=== PATIENT | female | born 1955 | race Caucasian/White ===

== ENCOUNTER 2018-10-26 20:03 | Inpatient (IN) | payer OTHER ==
[~2018-10-26] VITALS: Ht 170.2 cm; Wt 107.1 kg
[2018-10-26] MEDS ORDERED: SODIUM CHLORIDE 0.9% 1000ML 1,000 ML IV STA ×2 (20:31→23:06)
[2018-10-26] MEDS ORDERED: ONDANSETRON HCL INJ 2MG/ML 2ML 2 MG/ML VIAL IV STA (20:31)
[2018-10-26] MEDS ORDERED: PANTOPRAZOLE 40 MG 10ML VIAL IV STA (20:31)
[2018-10-26] MEDS ORDERED: MORPHINE SULFATE INJ 4 MG/ML INJ 1ML ONE (20:41)
[2018-10-26 20:42] LABS: BASOPHILS % 0.2 % (0.0-1.0); EOSINOPHILS # (AUTO) 0.1 (0.0-0.4); EOSINOPHILS % 0.4 % (0.0-6.0); HEMATOCRIT 43.5 % (34.2-44.1); HEMOGLOBIN 15.2 g/dL (12.0-16.0); LYMPHOCYTES # (AUTO) 1.1 (1.0-3.2); LYMPHOCYTES % 9.5 % (18.0-39.1); MEAN CORPUSCULAR HEMOGLOBIN 31.8 pg (28-32); MEAN CORPUSCULAR HGB CONC 34.9 g/dL (31-35); MONOCYTES # (AUTO) 0.4 (0.2-0.8); MONOCYTES % 3.9 % (4.4-11.3); NEUTROPHILS # (AUTO) 9.7 (2.1-6.9); NEUTROPHILS % 85.6 % (38.7-80.0); PLATELET COUNT 342 x10e3/uL (140-360); RED BLOOD COUNT 4.78 x10e6/uL (3.6-5.1); RED CELL DISTRIBUTION WIDTH 12.5 % (11.7-14.4)
[2018-10-26] MEDS ORDERED: MORPHINE SULFATE 5 MG/ML VIAL IV ONE (20:45)
[2018-10-26 20:54] LABS: INR 0.83; PROTHROMBIN TIME 12.2 seconds (11.9-14.5)
[2018-10-26 20:55] LABS: PARTIAL THROMBOPLASTIN TIME 30.5 seconds (23.8-35.5)
[2018-10-26] MEDS ORDERED: MORPHINE SULFATE INJ 4 MG/ML INJ 1ML IV ONE (21:00)
[2018-10-26] MEDS ORDERED: ONDANSETRON HCL INJ 2MG/ML 2ML 2 MG/ML VIAL IV ONE (21:00)
[2018-10-26] MEDS ORDERED: PANTOPRAZOLE 40 MG 10ML VIAL IV ONE (21:00)
[2018-10-26 21:01] LABS: ALANINE AMINOTRANSFERASE 34 IU/L (0-55); ALBUMIN 4.3 g/dL (3.5-5.0); ALBUMIN/GLOBULIN RATIO 1.1 (0.8-2.0); ALKALINE PHOSPHATASE 101 IU/L (40-150); AMYLASE 87 U/L (25-125); ANION GAP 13.4 mmol/L (8-16); BLOOD UREA NITROGEN 19 mg/dL (7-26); BUN/CREATININE RATIO 21 (6-25); CALCIUM 10.4 mg/dL (8.4-10.2); CARBON DIOXIDE 27 mmol/L (22-29); CHLORIDE 97 mmol/L (98-107); CREATINE KINASE 184 IU/L (29-168); CREATININE, SERUM 0.89 mg/dL (0.57-1.11); EST GLOMERULAR FILTRATION RATE > 60 ML/MIN (60-); GLUCOSE 129 mg/dL (74-118); LIPASE 66 U/L (8-78); MAGNESIUM 1.9 MG/DL (1.3-2.1); POTASSIUM 3.4 mmol/L (3.5-5.1); SODIUM 134 mmol/L (136-145)
--- NOTE | 2018-10-26 21:29 | Diagnostic Imaging Report ---
EXAM: CHEST SINGLE (PORTABLE), AP 1 view INDICATION: Upper abdominal pain COMPARISON: None FINDINGS: LINES/TUBES: None LUNGS: No consolidations or edema. PLEURA: No effusions or pneumothorax. HEART AND MEDIASTINUM: Normal size and contour. BONES AND SOFT TISSUES: No acute findings. IMPRESSION: No acute thoracic abnormality. Signed by: Dr. Gillian Liu M.D. on 10/26/2018 9:26 PM
--- NOTE | 2018-10-26 23:26 | Diagnostic Imaging Report ---
EXAM: CT ABDOMEN AND PELVIS without IV CONTRAST INDICATION: Epigastric pain COMPARISON: None TECHNIQUE: The abdomen and pelvis were scanned using a multidetector helical scanner. Coronal and sagittal reformations were obtained. Dose modulation, iterative reconstruction, and/or weight based adjustment of the mA/kV was utilized to reduce the radiation dose to as low as reasonably achievable. Routine protocol performed. IV Contrast: None Oral Contrast: Gastrografin CTDIvol has been reviewed. It is below the limits set by the Radiation Protocol Committee (RPC). FINDINGS: LOWER THORAX: No consolidations LIVER: No masses BILIARY: Cholecystectomy without ductal dilation. SPLEEN: No masses PANCREAS: No masses ADRENALS: No nodules RIGHT KIDNEY: No nephroureterolithiasis or hydronephrosis. LEFT KIDNEY: No nephroureterolithiasis or hydronephrosis. GI TRACT: Mildly distended loops of proximal small bowel up to 3.2 cm with air-fluid levels and without transition point identified. VESSELS: Normal PERITONEUM/RETROPERITONEUM: Trace free pelvic fluid. LYMPH NODES: No lymphadenopathy REPRODUCTIVE ORGANS: Normal BLADDER: Decompressed SOFT TISSUES: Small fat-containing umbilical hernia. BONES: No suspicious bone lesions. IMPRESSION: Partial small bowel obstruction, likely secondary to adhesions. Signed by: Dr. Gillian Liu M.D. on 10/26/2018 11:23 PM
[2018-10-26 23:28] LABS: BILIRUBIN,URINE NEGATIVE (NEGATIVE); CLARITY,URINE CLOUDY (CLEAR); COLOR,URINE YELLOW (YELLOW); KETONES,URINE TRACE (NEGATIVE); LEUKOCYTE ESTERASE ,URINE TRACE (NEGATIVE); NITRITE,URINE NEGATIVE (NEGATIVE); PROTEIN,URINE DIPSTICK NEGATIVE (NEGATIVE); URINE UROBILINOGEN 0.2 mg/dL (0.2 - 1)
[2018-10-26 23:35] LABS: RBC,URINE 0-5 /HPF (0-5); WBC,URINE (MAN) 0-5 /HPF (0-5)
[2018-10-26 23:36] LABS: AMORPHOUS SEDIMENT,URINE MANY (FEW); BACTERIA,URINE MANY /HPF; EPITHELIAL CELLS,URINE FEW /LPF
[2018-10-26] MEDS ORDERED: PROMETHAZINE 12.5MG/ NACL 0.9% 12.5 MG/50 ML BAG IV STA (23:50)
[2018-10-26] MEDS ORDERED: SYNTHROID150 MCG PO (23:52)
[2018-10-26] MEDS ORDERED: MONTELUKAST SOD10 MG PO (23:52)
[2018-10-27] VITALS (7 sets, daily range): BP systolic 121–150; BP diastolic 63–70
[2018-10-27] MEDS ORDERED: CEFEPIME 2 GM/NS 0.9% 100 ML 100 ML IV SCH (00:15)
[2018-10-27] MEDS ORDERED: BENZOCAINE/TETRACAINE/BUTAMBEN AERO SPRAY 56 GM CAN TOP ONE ×2 (00:15)
[2018-10-27] MEDS ORDERED: SODIUM CHLORIDE 0.9% 1000ML 1,000 ML IV SCH (00:21)
[2018-10-27] MEDS ORDERED: PROMETHAZINE 12.5MG/ NACL 0.9% 12.5 MG/50 ML BAG IV PRN (00:30)
--- OUTSIDE RECORDS SUMMARY | 2018-10-27 00:36 | XMS REPORT ---
Author [facility] Address Unknown Phone Unavailable Care Team Providers Care Abnormal Psychology Teacher Name Role Phone Nani POMPA Unavailable Unavailable Problems This patient has no known problems. Allergies, Adverse Reactions, Alerts This patient has no known allergies or adverse reactions. Medications This patient has no known medications. Results Test Description Test Time Test Comments Text Results Atomic Results Result Comments CT ABDOMEN/PELVIS WO 2018-10-26 23:18:00 [place] [address] Patient Name: UZMA MARAVILLA MR #: [id number] : 1955 Age/Sex: 63/F Req #: [id number] Adm Physician: Ordered by: KANDI POMPA MD Report #: [id number] Location: ER Room/Bed: Procedure: [id number] CT/CT ABDOMEN/PELVIS WO Exam Date: 10/26/18 Exam Time: 2307 REPORT STATUS: Signed EXAM: CT ABDOMEN AND PELVIS without IV CONTRAST KAYE CATION: Epigastric pain COMPARISON: None TECHNIQUE: The abdomen and pelvis were scanned using a multidetector helical scanner. Coronal and sagittal reformations were obtained. Dose modulation, iterative reconstruction, and/or weight based adjustment of the mA/kV was utilized to reduce the radiation dose to as low as reasonably achievable. Routine protocol performed. IV Contrast: None Oral Contrast: Gastrografin CTDIvol has been reviewed. It is below the limits set by the Radiation Protocol Committee (RPC). FINDINGS: LOWER THORAX: No consolidations LIVER: No masses BILIARY: Cholecystectomy without ductal dilation. SPLEEN: No masses PANCREAS: No masses ADRENALS: No nodules RIGHT KIDNEY: No nephroureterolithiasis or hydronephrosis. LEFT KIDNEY: No nephroureterolithiasis or hydronephrosis. GI TRACT: Mildly distended loops of proximal small bowel up to 3.2 cm with air-fluid levels and without transition point identified. VESSELS: Normal PERITONEUM/RETROPERITONEUM: Trace free pelvic fluid. LYMPH NODES: No lymphadenopathy REPRODUCTIVE ORGANS: Normal BLADDER: Decompressed SOFT TISSUES: Small fat-containing umbilical hernia. BONES: No suspicious bone lesions. IMPRESSION: Partial small bowel obstruction, likely secondary to adhesions. Signed by: Dr. Deanna Bess M.D. on 10/26/2018 11:23 PM Dictated By: DEANNA BESS MD 22 Transcribed By: ETHAN on 10/26/182322 COPY TO: KANDI POMPA MD CHEST SINGLE (PORTABLE) 2018-10-26 21:25:00 [place] [address] Patient Name: UZMA MARAVILLA MR #: [id number] : 1955 Age/Sex: 63/F Req #: [id number] Adm Physician: Ordered by: KANDI POMPA MD Report #: [id number] Location: ER Room/Bed: Procedure: [id number] DX/CHEST SINGLE (PORTABLE) Exam Date: 10/26/18 Exam Time: 2104 REPORT STATUS: Signed EXAM: CHEST SINGLE (PORTABLE), AP 1 view INDICATION: Upper abdominal pain COMPARISON: None FINDINGS: LINES/TUBES: None LUNGS: No consolidations or edema. PLEURA: No effusions or pneumothorax. HEART AND MEDIASTINUM: Normal size and contour. BONES AND SOFT TISSUES: No acute findings. IMPRESSION: No acute thoracic abnormality. Signed by: Dr. Deanna Bess M.D. on 10/26/2018 9:26 PM Dictated By: DEANNA BESS MD 25 Transcribed By: ETHAN on 10/26/182125 COPY TO: KANDI POMPA MD
[2018-10-27] MEDS ORDERED: CEFEPIME HCL 2 GM VIAL ONE ×2 (00:40→00:44)
[2018-10-27] MEDS ORDERED: SODIUM CHLORIDE 0.9% 100 ML ONE ×2 (00:41→00:44)
[2018-10-27] MEDS ORDERED: MORPHINE SULFATE INJ 4 MG/ML INJ 1ML ONE ×2 (00:48→05:05)
[2018-10-27] MEDS: MORPHINE SULFATE 2 MG/ML SYR 1ML IV PRN ×2 (00:52→05:10)
[2018-10-27] MEDS: METRONIDAZOLE 500MG/NS 100ML 100 ML IV SCH ×4 (01:12→18:30)
--- NOTE | 2018-10-27 02:44 | Diagnostic Imaging Report ---
EXAM: ABDOMEN-1VIEW (KUB), INDICATION: NG tube placement small bowel obstruction COMPARISON: CT of the abdomen and pelvis October 26, 2018 FINDINGS: See impression IMPRESSION: Partially visualized lower chest and upper abdomen for the purpose of nasogastric tube placement. The tip is in the expected location of the fundus of the stomach. Dilated loops of small bowel consistent with partial small bowel obstruction. Signed by: Dr. Gillian Liu M.D. on 10/27/2018 2:41 AM
[2018-10-27] MEDS: ONDANSETRON HCL INJ 2MG/ML 2ML 2 MG/ML VIAL IV PRN (04:05)
[2018-10-27] MEDS ORDERED: ACETAMINOPHEN 1000 MG/100 ML IV PRN (06:00)
[2018-10-27] MEDS ORDERED: HYDRALAZINE HCL 20 MG/ML VIAL IV PRN (06:00)
[2018-10-27] MEDS ORDERED: DEXTROSE 5%/0.9% SOD CHL 1,000 ML IV SCH (06:15)
[2018-10-27] MEDS: LEVOTHYROXINE SODIUM 100 MCG TAB PO SCH (07:30)
[2018-10-27] MEDS: MONTELUKAST SODIUM 10 MG TAB PO SCH (09:00)
[2018-10-27] MEDS: PANTOPRAZOLE 40 MG 10ML VIAL IV SCH ×2 (09:54→17:59)
[2018-10-27] MEDS: MORPHINE SULFATE INJ 4 MG/ML INJ 1ML IV PRN (09:54)
[2018-10-27] MEDS: CEFEPIME 2 GM/NS 0.9% 100 ML 100 ML IV SCH ×2 (09:54→16:00)
--- NOTE | 2018-10-27 09:54 | NUR ---
assessment complete no distress noted, updated on poc voiced understanding, co pain 01/17, ivf infusing ot l wrist 20g no ss of infiltration noted,ng to r nare, with brownish fluid noted, no other co voiced call light in reach will continue ot monitor
[2018-10-27] MEDS: D5NS/KCL 20MEQ 1,000 ML IV SCH ×2 (16:50→19:35)
[2018-10-27] MEDS ORDERED: SEVOFLURANE INHAL SOLN 250 ML PEN BTL ONE (16:51)
[2018-10-27] MEDS ORDERED: ONDANSETRON HCL INJ 2MG/ML 2ML 2 MG/ML VIAL ONE (16:51)
[2018-10-27] MEDS ORDERED: GLYCOPYRROLATE INJ 1MG/ 5 ML SYR ONE (16:51)
[2018-10-27] MEDS ORDERED: ROCURONIUM BROMIDE 10 MG/ML 5ML VIAL ONE (16:51)
[2018-10-27] MEDS ORDERED: NEOSTIGMINE 5 MG/5ML SYR ONE (16:51)
[2018-10-27] MEDS ORDERED: LIDOCAINE HCL 2% LOCAL INJ 5 ML SDV VIAL INJ ONE (16:51)
[2018-10-27] MEDS ORDERED: PROPOFOL IV EMULSION 10 MG/ML 20 ML VIAL ONE (16:51)
--- NOTE | 2018-10-27 17:10 | NUR ---
IV DC IN LT AC
--- NOTE | 2018-10-27 19:40 | NUR ---
Received report from AM nurse. Walking rounds completed.
--- NOTE | 2018-10-27 20:13 | NUR ---
Patient sitting up in bed. AAOx3. Denies pain at this time. NGT to suction. Green secretions noted. Patient NPO but given mouth moister with suction. IV to left wrist D5 20KCL at 75cc/hr. No noted redness, swelling or pain. Tele SR at 86. Family at bedside. NGT checked for placement. Good placement. Patient does have urgency to bring up fluids with flushing or checking placement. Continue monitor.
[2018-10-28] VITALS (7 sets, daily range): BP systolic 140–156; BP diastolic 68–80
--- NOTE | 2018-10-28 05:30 | NUR ---
Patient requested pain meds. Given nausea and pain meds as ordered by MD.
[2018-10-28] MEDS: METRONIDAZOLE 500MG/NS 100ML 100 ML IV SCH ×4 (05:50→17:56)
[2018-10-28] MEDS: LEVOTHYROXINE SODIUM 100 MCG TAB PO SCH ×2 (05:50→07:30)
[2018-10-28 05:51] LABS: BASOPHILS % 0.4 % (0.0-1.0); EOSINOPHILS # (AUTO) 0.1 (0.0-0.4); EOSINOPHILS % 2.1 % (0.0-6.0); HEMATOCRIT 38.1 % (34.2-44.1); HEMOGLOBIN 12.7 g/dL (12.0-16.0); LYMPHOCYTES # (AUTO) 1.5 (1.0-3.2); LYMPHOCYTES % 21.8 % (18.0-39.1); MEAN CORPUSCULAR HEMOGLOBIN 31.7 pg (28-32); MEAN CORPUSCULAR HGB CONC 33.3 g/dL (31-35); MONOCYTES # (AUTO) 0.9 (0.2-0.8); MONOCYTES % 13.8 % (4.4-11.3); NEUTROPHILS # (AUTO) 4.2 (2.1-6.9); NEUTROPHILS % 61.8 % (38.7-80.0); PLATELET COUNT 262 x10e3/uL (140-360); RED BLOOD COUNT 4.01 x10e6/uL (3.6-5.1); RED CELL DISTRIBUTION WIDTH 13.2 % (11.7-14.4)
[2018-10-28 06:15] LABS: ALANINE AMINOTRANSFERASE 21 IU/L (0-55); ALBUMIN 3.1 g/dL (3.5-5.0); ALKALINE PHOSPHATASE 61 IU/L (40-150); ANION GAP 11.5 mmol/L (8-16); BLOOD UREA NITROGEN 25 mg/dL (7-26); BUN/CREATININE RATIO 31 (6-25); CALCIUM 8.7 mg/dL (8.4-10.2); CARBON DIOXIDE 25 mmol/L (22-29); CHLORIDE 109 mmol/L (98-107); EST GLOMERULAR FILTRATION RATE > 60 ML/MIN (60-); GLUCOSE 100 mg/dL (74-118); POTASSIUM 3.5 mmol/L (3.5-5.1); SODIUM 142 mmol/L (136-145)
[2018-10-28] MEDS: MORPHINE SULFATE INJ 4 MG/ML INJ 1ML IV PRN (06:28)
[2018-10-28] MEDS: ONDANSETRON HCL INJ 2MG/ML 2ML 2 MG/ML VIAL IV PRN (06:29)
[2018-10-28 07:01] LABS: FREE T4 (FREE THYROXINE) 0.92 ng/dL (0.9-1.8); THYROID STIMULATING HORMONE 3.035 uIU/mL (0.350-4.940)
--- NOTE | 2018-10-28 07:18 | Diagnostic Imaging Report ---
RADIOGRAPH(S) OF THE ABDOMEN AND PELVIS, 2 view(s) HISTORY: Small bowel obstruction COMPARISON: Abdominal radiograph October 27, 2018. CT of the abdomen and pelvis October 26, 2018. FINDINGS: No air-filled dilated bowel. The fluid filled bowel on the comparison CT is not visible on radiographs. The bones are partially obscured by stool and overlying bowel gas. IMPRESSION: No significant interval change, the bowel findings are better characterized on the recent comparison CT of the abdomen and pelvis. Signed by: Dr. Fabrice Castellanos D.O., M.M.M. on 10/28/2018 7:14 AM
[2018-10-28] MEDS: MONTELUKAST SODIUM 10 MG TAB PO SCH (09:00)
--- NOTE | 2018-10-28 09:21 | Consultation ---
DATE OF CONSULTATION: October 28, 2018 REFERRING PHYSICIAN: Dr. Hughes. HISTORY OF PRESENT ILLNESS: Patient is a 63-year-old female who was admitted to the hospital with complaints of epigastric abdominal pain, started 2 days ago. She has associated nausea and vomiting. She is not passing any flatus for 2 days, not had a bowel movement. Evaluation with CT of the abdomen and pelvis and followup x-rays revealed findings suggestive of small bowel obstruction. The patient says her pain is less today, having crampy pain, but now this is gone, but she is still not passing any flatus. PAST MEDICAL HISTORY: Significant for previous surgeries including section, cholecystectomy, appendectomy as well as knee surgery and tonsillectomy. She has a history of hypothyroidism. ALLERGIES: SHE HAS ALLERGY TO PENICILLIN AND IODINE. MEDICATIONS: Listed in the chart. FAMILY HISTORY: Noncontributory. SOCIAL HISTORY: The patient does not smoke cigarettes or drink alcohol. REVIEW OF SYSTEMS: As stated above. She has not had any fever. PHYSICAL EXAMINATION GENERAL: The patient is awake and alert, in no distress. VITAL SIGNS: Normal. She is not tachycardic. HEENT: Sclerae not icteric. NECK: Supple. No masses. LUNGS: Equal breath sounds are clear bilaterally. CARDIAC: Regular rate and rhythm, with no murmur. ABDOMEN: Soft. There is no significant tenderness. No mass. There are no signs of peritonitis. EXTREMITIES: No edema. NEUROLOGIC: Grossly intact. LABORATORY DATA: White blood cell count was 11,000 on admission, repeat is 6.8. Hemoglobin and hematocrit are normal. Chemistries are essentially normal. ASSESSMENT: A 63-year-old female with symptoms suggestive of small bowel obstruction. RECOMMENDATIONS: Continue the patient n.p.o., on NG tube for now. Plan to repeat the abdominal x-ray tomorrow. Thank you for asking me to see Ms. Zavala. Job#: [id number] KI
[2018-10-28] MEDS: PANTOPRAZOLE 40 MG 10ML VIAL IV SCH ×2 (10:09→17:22)
--- NOTE | 2018-10-28 10:09 | NUR ---
ASSESSMENT COMPLETE NO DISTRESS NOTED, UPDATED ON POC VOICED UNDERSTANDING, DENIES PAIN AT THIS TIME, NG TO R NARE WITH GREEN FLUID NOTED, IVF INFUSING TO R HAND 20G NO SS OF INFILTRATION NOTED, NO OTHER CO VOICED CALL LIGHT IN REACH WILL CONTINUE TO MONITOR
[2018-10-28] MEDS: CEFEPIME 2 GM/NS 0.9% 100 ML 100 ML IV SCH ×3 (10:30→16:30)
[2018-10-28] MEDS: D5NS/KCL 20MEQ 1,000 ML IV SCH ×2 (11:00→22:15)
--- NOTE | 2018-10-28 11:30 | NUR ---
SPOKE WITH DR JAMIL REYES FOR PT TO HAVE LIFE SAVERS OR TIC TACS
--- NOTE | 2018-10-28 13:22 | NUR ---
SOCIAL WORK INITIAL ASSESSMENT Land Economist to bedside to discuss plan of care with patient/family. CM/SW role and care transitions discussed. Anticipated discharge plan discussed along with duration of care. CM/SW discussed patients right to make decisions in care. CM/SW work hours given. Patient lives: IN OWN HOUSE WITH SON Admit/Transfer: VIA ED FROM HOME POA/Emergency contact: ROSEMARY VASUQEZ [phone] Current/Previous Home Health: NONE PCP/Follow-up Care: PAM Current/Previous DME: NONE Other Services: NONE Employment Status: [employer] Areas of Concerns: NONE Referral Needs: NONE Education Needs: NONE IMM/[place] given and signed (if applicable): NA Goal for discharge: RETURN HOME INDEPENDENTLY CM/SW left business card at the bedside with contact information. Name and number was also written on the patients whiteboard. Patient verbalized understanding of discussion. CM will follow-up with ongoing discharge and transition of care needs.
--- NOTE | 2018-10-28 19:43 | NUR ---
Received change of shift report from Am nurse. Walking rounds completed.
[2018-10-29] VITALS (7 sets, daily range): BP systolic 144–181; BP diastolic 73–95
--- NOTE | 2018-10-29 | NUR ---
Patient up out of bed to bathroom several times. Ambulating with no difficulty noted. AAOx3. IV intact. NGT to WS draining greem secreations. Family at bedside. Continue monitor.
--- NOTE | 2018-10-29 05:22 | NUR ---
Patient resting quitly at this time. Continue monitor for changes in patient condition.
[2018-10-29] MEDS: METRONIDAZOLE 500MG/NS 100ML 100 ML IV SCH ×5 (06:00→23:38)
[2018-10-29 06:07] LABS: BASOPHILS % 0.3 % (0.0-1.0); EOSINOPHILS # (AUTO) 0.2 (0.0-0.4); EOSINOPHILS % 3.2 % (0.0-6.0); HEMATOCRIT 37.7 % (34.2-44.1); HEMOGLOBIN 12.4 g/dL (12.0-16.0); LYMPHOCYTES # (AUTO) 1.5 (1.0-3.2); MEAN CORPUSCULAR HEMOGLOBIN 31.6 pg (28-32); MEAN CORPUSCULAR HGB CONC 32.9 g/dL (31-35); MEAN CORPUSCULAR VOLUME 96.2 fL (81-99); MONOCYTES # (AUTO) 0.7 (0.2-0.8); MONOCYTES % 10.7 % (4.4-11.3); NEUTROPHILS # (AUTO) 4.1 (2.1-6.9); NEUTROPHILS % 62.5 % (38.7-80.0); PLATELET COUNT 250 x10e3/uL (140-360); RED BLOOD COUNT 3.92 x10e6/uL (3.6-5.1); RED CELL DISTRIBUTION WIDTH 13.1 % (11.7-14.4)
[2018-10-29 06:23] LABS: ANION GAP 10.7 mmol/L (8-16); BLOOD UREA NITROGEN 22 mg/dL (7-26); BUN/CREATININE RATIO 28 (6-25); CALCIUM 8.4 mg/dL (8.4-10.2); CARBON DIOXIDE 26 mmol/L (22-29); CHLORIDE 109 mmol/L (98-107); CREATININE, SERUM 0.79 mg/dL (0.57-1.11); EST GLOMERULAR FILTRATION RATE > 60 ML/MIN (60-); GLUCOSE 104 mg/dL (74-118); POTASSIUM 3.7 mmol/L (3.5-5.1); SODIUM 142 mmol/L (136-145)
[2018-10-29] MEDS: CEFEPIME 2 GM/NS 0.9% 100 ML 100 ML IV SCH ×4 (08:00→23:38)
--- NOTE | 2018-10-29 08:22 | Diagnostic Imaging Report ---
RADIOGRAPH(S) OF THE ABDOMEN AND PELVIS, 3 view(s) HISTORY: Small bowel obstruction COMPARISON: Abdominal radiographs October 28, 2018. FINDINGS: Status post placement of a nasogastric/orogastric tube, the tube is coiled within the stomach and the tip projects towards the fundus, the side port near the gastroesophageal junction. Dilated loops of small bowel within the left upper quadrant of the abdomen, up to 4.5 cm in diameter. Air and stool within the colon. Metallic clips in the right upper quadrant of the abdomen are compatible with prior cholecystectomy. The bones are partially obscured by stool and overlying bowel gas. IMPRESSION: 1. Findings remain compatible with a partial small bowel obstruction. 2. Status post placement of an NG/NG tube, as above. Signed by: Evens Mendez.Lang., M.M.M. on 10/29/2018 8:19 AM
--- NOTE | 2018-10-29 08:40 | NUR ---
NG DC'D PER ORDERED, PT TOLERATED WELL
[2018-10-29] MEDS: PANTOPRAZOLE 40 MG 10ML VIAL IV SCH ×2 (09:16→17:59)
[2018-10-29] MEDS: MONTELUKAST SODIUM 10 MG TAB PO SCH (10:07)
[2018-10-29] MEDS: LEVOTHYROXINE SODIUM 100 MCG TAB PO SCH (10:07)
--- NOTE | 2018-10-29 10:11 | NUR ---
ASSESSMENT COMPLETE NO DISTRESS NOTED, UPDATED ON POC VOCIED UNDERSTANDING, DENIES PAIN AT THIS TIME, IVF INFUSING TO L AC 20G NO SS OF INFILTRATION NOTED, NO OTHER CO VOCIED CALL LIGHT IN REACH WILL CONTINUE TO MONITOR
[2018-10-29] MEDS: D5NS/KCL 20MEQ 1,000 ML IV SCH ×2 (11:35→23:39)
--- NOTE | 2018-10-29 19:19 | NUR ---
Received change of shift report from Am nurse. Walking rounds completed.
[2018-10-30] VITALS: BP 143/67
[2018-10-30 04:00] VITALS: BP 165/84
[2018-10-30 04:11] LABS: BASOPHILS % 0.4 % (0.0-1.0); EOSINOPHILS # (AUTO) 0.3 (0.0-0.4); EOSINOPHILS % 4.3 % (0.0-6.0); HEMATOCRIT 34.7 % (34.2-44.1); HEMOGLOBIN 12.4 g/dL (12.0-16.0); LYMPHOCYTES # (AUTO) 1.5 (1.0-3.2); MEAN CORPUSCULAR HEMOGLOBIN 33.5 pg (28-32); MEAN CORPUSCULAR HGB CONC 35.7 g/dL (31-35); MEAN CORPUSCULAR VOLUME 93.8 fL (81-99); MONOCYTES # (AUTO) 0.7 (0.2-0.8); MONOCYTES % 10.1 % (4.4-11.3); NEUTROPHILS # (AUTO) 4.4 (2.1-6.9); NEUTROPHILS % 62.8 % (38.7-80.0); PLATELET COUNT 220 x10e3/uL (140-360); RED CELL DISTRIBUTION WIDTH 12.6 % (11.7-14.4)
[2018-10-30 04:29] LABS: ANION GAP 10.4 mmol/L (8-16); BLOOD UREA NITROGEN 17 mg/dL (7-26); BUN/CREATININE RATIO 26 (6-25); CARBON DIOXIDE 25 mmol/L (22-29); CHLORIDE 107 mmol/L (98-107); CREATININE, SERUM 0.65 mg/dL (0.57-1.11); EST GLOMERULAR FILTRATION RATE > 60 ML/MIN (60-); GLUCOSE 91 mg/dL (74-118); MAGNESIUM 1.8 MG/DL (1.3-2.1); POTASSIUM 3.4 mmol/L (3.5-5.1); SODIUM 139 mmol/L (136-145)
--- NOTE | 2018-10-30 05:06 | NUR ---
Patient resting quitly at this time. Continue monitor.
[2018-10-30] MEDS: METRONIDAZOLE 500MG/NS 100ML 100 ML IV SCH (05:18)
[2018-10-30] MEDS ORDERED: POTASSIUM CHLORIDE 20 MEQ TAB CR PO STA (06:14)
[2018-10-30] MEDS: LEVOTHYROXINE SODIUM 100 MCG TAB PO SCH (06:34)
--- NOTE | 2018-10-30 07:00 | NUR ---
SHIFT REPORT RECEIVED FROM THERMAL ENGINEER RN WHILE ROUNDING. PT DENIES NEEDS AT THIS TIME.
--- NOTE | 2018-10-30 07:21 | Diagnostic Imaging Report ---
RADIOGRAPH(S) OF THE ABDOMEN AND PELVIS, 2 view(s) HISTORY: Small bowel obstruction COMPARISON: Abdominal radiograph October 29, 2018. FINDINGS: Interval removal of the nasogastric/orogastric tube tube. Persistent dilated loops of small bowel predominantly in the left upper quadrant of the abdomen, measuring up to 4 cm, which is slightly decreased, but the number of loops dilated has slightly increased. Air and stool within the colon. Metallic clips in the right upper quadrant of the abdomen are compatible with prior cholecystectomy. The bones are partially obscured by stool and overlying bowel gas. IMPRESSION: 1. Findings remain compatible with a partial small bowel obstruction. 2. Status post removal of the nasogastric/orogastric tube. Signed by: Dr. Fabrice Castellanos D.O., M.M.M. on 10/30/2018 7:18 AM
[2018-10-30 08:00] VITALS: BP 156/79
[2018-10-30] MEDS: PANTOPRAZOLE 40 MG 10ML VIAL IV SCH ×2 (08:31→17:29)
[2018-10-30] MEDS: MONTELUKAST SODIUM 10 MG TAB PO SCH (08:32)
[2018-10-30] MEDS: OYST-CAL-D 500MG TABLET PO SCH (08:32)
[2018-10-30] MEDS ORDERED: BUPIVACAINE 0.5%/EPI 30 ML SDV INJ ONE (12:27)
[2018-10-30] MEDS ORDERED: BUPIVACAINE 0.25% 30ML SDV INJ ONE (12:33)
[2018-10-30 13:10] VITALS: BP 176/91
[2018-10-30] MEDS: D5NS/KCL 20MEQ 1,000 ML IV SCH (14:15)
--- NOTE | 2018-10-30 14:17 | NUR ---
PT OFF THE UNIT TO OR.
[2018-10-30] MEDS ORDERED: LEVOFLOXACIN 500MG/D5W 100ML 100 ML IV ONE (14:43)
[2018-10-30] MEDS: DEXTROSE 5%/LACTATED RINGERS 1,000 ML IV SCH ×2 (15:13→22:50)
[2018-10-30] MEDS ORDERED: ONDANSETRON HCL INJ 2MG/ML 2ML 2 MG/ML VIAL IV PRN (15:15)
[2018-10-30] MEDS ORDERED: MORPHINE SULFATE INJ 4 MG/ML INJ 1ML IV PRN (15:15)
--- NOTE | 2018-10-30 16:07 | Operative Report ---
DATE OF PROCEDURE: October 30, 2018 PREOPERATIVE DIAGNOSIS: Small-bowel obstruction. POSTOPERATIVE DIAGNOSIS: Small-bowel obstruction. PROCEDURES 1. Diagnostic laparoscopy. 2. Laparoscopic lysis of adhesions with release of small-bowel obstruction. CROP GRAIN OR LIVESTOCK FARM MANAGER: None. ANESTHESIA: General. INDICATIONS AND FINDINGS: Patient is a 63-year-old female admitted to the hospital with the complaints of abdominal pain with nausea and vomiting. Workup revealed probable small-bowel obstruction. At surgery, the patient was found to have a small-bowel obstruction with dilated proximal bowel and collapsed distal bowel. The obstruction was caused by adhesive band involving omentum and sigmoid colon. The bowel all appeared viable. TECHNIQUE: After adequate general endotracheal anesthesia with the patient in the supine position, the abdomen was prepped and draped in a sterile fashion with ChloraPrep solution. On the left side of the abdomen away from her previous surgery, skin and subcutaneous tissue was infiltrated with 0.5% Marcaine. Transverse incision made. Abdominal wall was elevated and Veress needle was introduced. Pneumoperitoneum was then created. A 10-mm trocar and cannula was then passed through this wound. Laparoscopic camera was introduced. Laparoscopy revealed dilated small bowel and also collapsed small bowel with some serous fluid in the peritoneal cavity. A 5-mm trocar and cannula was placed in left upper quadrant. A 5-mm trocar and cannula was placed in the left lower quadrant. The dilated bowel was followed distally. There was found to be a point of obstruction caused by adhesive band between the omentum and the colon. The bowel had herniated between these structures causing the obstruction. Adhesive band was lysed freeing the small bowel. The point of obstruction was clearly seen and appeared viable. The bowel beyond this was all collapsed. There was additional adhesions involving omentum. These were all lysed to minimize the risk of future obstruction. The small bowel was then examined starting distally where it was collapsed and followed proximally. All appeared viable. The peritoneal cavity was irrigated with saline. All fluid aspirated and inspected for hemostasis, which was seen to be adequate. Instruments and cannulas were removed. Pneumoperitoneum was evacuated. The wounds were then closed. The fascia and the larger trocar wound closed with 0 Vicryl. Skin to all wounds closed with 4-0 Vicryl in a subcuticular fashion. Dermabond and sterile dressing were applied to each wound. The patient tolerated the procedure well. Estimated blood loss was 5 mL. There were no complications. All counts were correct. Patient was taken to the recovery room in satisfactory condition. Job#: [id number] LINDA
[2018-10-30 16:26] VITALS: BP 156/73
--- NOTE | 2018-10-30 16:26 | NUR ---
PT BACK TO THE FLOOR FROM PACU. FAMILY AT BEDSIDE.
[2018-10-30] MEDS ORDERED: FENTANYL CITRATE/PF 100MCG/2 ML INJ ONE (17:15)
[2018-10-30] MEDS ORDERED: MIDAZOLAM HCL 2 MG/2 ML VIAL ONE (17:15)
[2018-10-30 20:00] VITALS: BP 159/72
--- NOTE | 2018-10-30 20:45 | NUR ---
VOIDED AT THIS TIME
[2018-10-31] VITALS (7 sets, daily range): BP systolic 127–169; BP diastolic 62–80
[2018-10-31 03:33] LABS: BASOPHILS % 0.3 % (0.0-1.0); EOSINOPHILS % 0.6 % (0.0-6.0); HEMATOCRIT 35.3 % (34.2-44.1); HEMOGLOBIN 12.2 g/dL (12.0-16.0); LYMPHOCYTES # (AUTO) 1.3 (1.0-3.2); LYMPHOCYTES % 19.9 % (18.0-39.1); MEAN CORPUSCULAR HEMOGLOBIN 32.3 pg (28-32); MEAN CORPUSCULAR HGB CONC 34.6 g/dL (31-35); MEAN CORPUSCULAR VOLUME 93.4 fL (81-99); MONOCYTES # (AUTO) 0.6 (0.2-0.8); MONOCYTES % 9.7 % (4.4-11.3); NEUTROPHILS # (AUTO) 4.6 (2.1-6.9); NEUTROPHILS % 69.2 % (38.7-80.0); PLATELET COUNT 220 x10e3/uL (140-360); RED BLOOD COUNT 3.78 x10e6/uL (3.6-5.1); RED CELL DISTRIBUTION WIDTH 12.2 % (11.7-14.4)
[2018-10-31] MEDS: D5NS/KCL 20MEQ 1,000 ML IV SCH (03:35)
[2018-10-31 03:50] LABS: ANION GAP 10.6 mmol/L (8-16); BLOOD UREA NITROGEN 16 mg/dL (7-26); BUN/CREATININE RATIO 24 (6-25); CARBON DIOXIDE 24 mmol/L (22-29); CHLORIDE 103 mmol/L (98-107); CREATININE, SERUM 0.68 mg/dL (0.57-1.11); EST GLOMERULAR FILTRATION RATE > 60 ML/MIN (60-); GLUCOSE 102 mg/dL (74-118); MAGNESIUM 1.5 MG/DL (1.3-2.1); POTASSIUM 3.6 mmol/L (3.5-5.1); SODIUM 134 mmol/L (136-145)
[2018-10-31] MEDS: LEVOTHYROXINE SODIUM 100 MCG TAB PO SCH ×3 (07:30→11:42)
[2018-10-31] MEDS: DEXTROSE 5%/LACTATED RINGERS 1,000 ML IV SCH ×2 (07:58→17:30)
[2018-10-31] MEDS: MONTELUKAST SODIUM 10 MG TAB PO SCH (08:09)
[2018-10-31] MEDS: PANTOPRAZOLE 40 MG 10ML VIAL IV SCH ×2 (08:09→17:25)
[2018-10-31] MEDS: OYST-CAL-D 500MG TABLET PO SCH (08:09)
[2018-10-31] MEDS ORDERED: TRAMADOL/APAP 37.5MG-325MG TAB PO PRN (10:45)
--- NOTE | 2018-10-31 13:15 | NUR ---
Nutrition Screen Note RD Recommendation for Physician: -Rec advancing to GI soft diet as tolerated Plan of Care: RD following, monitoring for tolerance and adequacy, diet education Nutrition reason for involvement: LOS Primary Diagnose(s): SBO PMH: hypothyroidism Ht: 67in Wt: 236.38lb BMI: 37kg/m2 IBW: 135lb RD Assessment: (10/31/2018) Chart reviewed. Labs and meds reviewed. 63yo F, who is admitted for SBO. POD 1. Visited pt in the room. Diet has been advanced to clear liquid for lunch today and pt was tolerating well. Pt reports having appetite and eager to eat. No GI complains noted. LBM - 10/31. Pt denies any issue with chewing or swallowing. RD provided education on GI soft diet. All questions have been answered. Will continue to monitor and follow. Current Diet: clear liquid diet Malnutrition Evaluation (10/31/2018) The patient does not meet criteria for a specified degree of malnutrition at this time. Will re-evaluate at follow-up as appropriate. Diet Education Needs Assessment: Diet education indicated, pt is agreeable with plan. Learner(s): pt Barriers: No barriers identified. Cultural/Language Modifications: No cultural/language modifications noted. Readiness: Pt eager to learn. Method: handouts, explanation Topics: GI soft diet Understanding/Compliance: Expect good understanding/compliance from pt. Will benefit from reinforcement. Nutrition Care Level: low Signed: Jessy Treviño, MS, RD, LD
--- NOTE | 2018-10-31 16:02 | NUR ---
DR. NEGRON ORDERED REGULAR DIET FOR PT. IF PT TOLERATES DINNER, OK FROM HIS STANDPOINT TO DISCHARGE AND FOLLOW UP IN HIS OFFICE IN 1 WEEK.
--- NOTE | 2018-11-01 02:37 | Discharge Summary ---
ADMISSION DIAGNOSES 1. Small-bowel obstruction. 2. Hypothyroidism. 3. Seasonal allergies. 4. Hypokalemia. 5. Hyponatremia. 6. Hypercalcemia. 7. Urinary tract infection. DISCHARGE DIAGNOSES 1. Small-bowel obstruction. 2. Hypothyroidism. 3. Seasonal allergies. 4. Hypokalemia. 5. Hyponatremia. 6. Hypercalcemia. 7. Rule out urinary tract infection. 8. Status post lysis of adhesions. HISTORY: Patient has a history of Graves disease, seasonal allergies. SURGICAL HISTORY: x1, tonsillectomy, cholecystectomy, appendectomy, and bilateral knee surgery. FAMILY HISTORY: Patient's grandfather has cancer. SOCIAL HISTORY: Noncontributory. HOSPITAL COURSE: A 63-year-old female complains of sharp intermittent epigastric pain that began yesterday morning. Nothing improves or worsens the pain. She admits to nausea and vomiting but denies fever, chills, and diarrhea. She had soft bowel movement prior to admission. On admission, patient had a chest x-ray done which was negative and a CT of the abdomen and pelvis which showed partial small-bowel obstruction, likely secondary to adhesions. Patient had an NG tube placed for 3 days with little improvement; so, on October 30, 2018, patient was taken to the OR for lysis of adhesions. On October 31, 2018, patient's diet was advanced to regular diet. She had multiple bowel movements prior to discharge. Per surgery, patient can discharge home. She will discharge and follow up with primary care in 1 to [address] Hayes in 1 to 2 weeks. Patient understands discharge instructions and agrees to plan. Vital signs stable, patient afebrile. Dictated by Brittney Briggs NP JOANNA CASANOVA MD Job#: [id number] CF
== END 2018-10-31 18:49 | disposition home or self-care (01) | DRG 336 ==
LOC: ER 20:03 → ERHOLD 10-27 00:21 → MED/SURG 10-27 01:06
PROVIDERS: ADMIT Internal Medicine; ATTEND Internal Medicine
PROC: 0DNU4ZZ Release Omentum, Percutaneous Endoscopic Approach (ICD-10-PCS; 2018-10-30)
PROC: 0DN84ZZ Release Small Intestine, Percutaneous Endoscopic Approach (ICD-10-PCS; principal; 2018-10-30 14:32)
DX: K56.51 Intestinal adhesions [bands], with partial obstruction (principal); E87.1 Hypo-osmolality and hyponatremia; N39.0 Urinary tract infection, site not specified; E03.9 Hypothyroidism, unspecified; J30.2 Other seasonal allergic rhinitis; E87.6 Hypokalemia; E83.51 Hypocalcemia; E05.00 Thyrotoxicosis with diffuse goiter without thyrotoxic crisis or storm; Z88.0 Allergy status to penicillin; Z91.048 Other nonmedicinal substance allergy status; Z80.9 Family history of malignant neoplasm, unspecified
CPT/HCPCS: 36415; 71045; 74018; 74019; 74176; 80048; 80053; 81001; 82150; 82550; 82553; 83605; 83690; 83735; 84439; 84443; 84484; 85025; 85610; 85730; 87086; 93005; 96374; 96375; 99284; J0692; J1956; J2001; J2250; J2270; J2405; J2550; J7030; J7050